=== PATIENT | female | born 1985 | race Caucasian/White ===

== ENCOUNTER 2017-11-16 20:54 | Emergency (ER) | payer SELFPAY, MEDICAID | END 2017-11-17 00:05 | disposition left against medical advice (07) | LOC: FTE 20:54 | DX: Z53.21 Procedure and treatment not carried out due to patient leaving prior to being seen by health care provider (principal) ==

== ENCOUNTER 2018-06-14 11:34 | Inpatient (IN) | payer MEDICAID ==
[2018-06-14] MEDS: LACTATED RINGER'S 1,000 ML IV ×3 (14:55→21:37)
[2018-06-14 14:58] LABS: ADD MAN DIFF? NO
[2018-06-14] MEDS ORDERED: CARBOPROST 250 MCG INJ IM (15:00)
[2018-06-14] MEDS ORDERED: OXYTOCIN 30 UNITS/LR 500 ML IV (15:00)
[2018-06-14] MEDS ORDERED: IBUPROFEN 600 MG TAB PO (15:00)
[2018-06-14] MEDS ORDERED: METHYLERGONOVINE 0.2 MG INJ IM (15:00)
[2018-06-14] MEDS ORDERED: MISOPROSTOL 200 MCG TAB PR (15:00)
[2018-06-14 15:01] LABS: BASOPHILS % 0.4 % (0.0-2.0); EOSINOPHILS # 0.1 10^3/ul (0.0-0.5); EOSINOPHILS % 0.6 % (0.0-7.0); HEMATOCRIT 35.8 % (37.0-47.0); HEMOGLOBIN 11.6 g/dl (12.0-16.0); LYMPHOCYTES # 2.3 10^3/ul (0.8-2.9); LYMPHOCYTES % 23.3 % (15.0-51.0); MEAN CORPUSCULAR HEMOGLOBIN 27.4 pg (29.0-33.0); MEAN CORPUSCULAR HGB CONC 32.4 g/dl (32.0-37.0); MEAN CORPUSCULAR VOLUME 84.4 fl (82.0-101.0); MEAN PLATELET VOLUME 12.1 fl (7.4-10.4); MONOCYTE # 0.5 10^3/ul (0.3-0.9); MONOCYTES % 4.9 % (0.0-11.0); NEUTROPHIL # 6.9 10^3/ul (1.6-7.5); PLATELET COUNT 182 10^3/UL (140-415); RED BLOOD COUNT 4.24 10^6/ul (4.20-5.40); RED CELL DISTRIBUTION WIDTH 13.6 % (11.5-14.5)
[2018-06-14 15:01] LABS: WHITE BLOOD COUNT 9.8 10^3/ul (4.8-10.8)
[2018-06-14 15:05] LABS: ADD UMIC YES; UR ASCORBIC ACID NEGATIVE (NEGATIVE); UR BACTERIA FEW /HPF (NONE SEEN); UR BILIRUBIN (Dip) NEGATIVE (NEGATIVE); UR BLOOD (Dip) 2+ mg/dL (NEGATIVE); UR CLARITY CLOUDY (CLEAR); UR COLOR YELLOW (YELLOW); UR GLUCOSE (Dip) NEGATIVE (NEGATIVE); UR KETONES (Dip) NEGATIVE (NEGATIVE); UR LEUKOCYTE ESTERASE (Dip) 3+ Leu/ul (NEGATIVE); UR NITRITE (Dip) NEGATIVE (NEGATIVE); UR RBC 1 /HPF (0-5); UR SPECIFIC GRAVITY (Dip) 1.017 (1.003-1.030); UR SQUAMOUS EPITHELIAL CELL MODERATE /HPF (FEW); UR TOTAL PROTEIN (Dip) NEGATIVE (NEGATIVE); UR UROBILINOGEN (Dip) NEGATIVE (NEGATIVE); UR WBC 4 /HPF (0-5)
[2018-06-14 15:21] LABS: INR 0.93; PARTIAL THROMBOPLASTIN TIME 24.7 Sec (23.0-35.0); PROTIME 12.6 Sec (11.9-14.9)
[2018-06-14 15:28] LABS: ALANINE AMINOTRANSFERASE 15 IU/L (13-69); ALBUMIN 3.3 g/dl (3.3-4.9); ALBUMIN/GLOBULIN RATIO 1.13; ALKALINE PHOSPHATASE 109 IU/L (42-121); ANION GAP 11 (5-13); ASPARTATE AMINO TRANSFERASE 27 IU/L (15-46); BILIRUBIN,INDIRECT 0.3 mg/dl (0-1.1); BILIRUBIN,TOTAL 0.3 mg/dl (0.2-1.3); BLOOD UREA NITROGEN 9 mg/dl (7-20); CALCIUM 9.2 mg/dl (8.4-10.2); CARBON DIOXIDE 20 mmol/L (21-31); CHLORIDE 107 mmol/L (97-110); CREATININE 0.38 mg/dl (0.44-1.00); Estimated GFR > 60 mL/min (>60); GLUCOSE 111 mg/dl (70-220); POTASSIUM 3.7 mmol/L (3.5-5.1); SODIUM 138 mmol/L (135-144); TOTAL PROTEIN 6.2 g/dl (6.1-8.1)
[2018-06-14 15:58] LABS: HEPATITIS B SURFACE ANTIGEN NEGATIVE (NEGATIVE)
[2018-06-14 20:03] LABS: RAPID PLASMA REAGIN NONREACTIVE (NR)
[2018-06-15] MEDS: BUTORPHANOL 2 MG INJ IV (00:56)
[2018-06-15] MEDS: LACTATED RINGER'S 1,000 ML IV (03:55)
[2018-06-15] MEDS ORDERED: LIDOCAINE 1% (MPF) 30 ML INJ (05:03)
[2018-06-15] MEDS ORDERED: IBUPROFEN 800 MG TAB (07:01)
[2018-06-15] MEDS: IBUPROFEN 800 MG TAB PO (07:03)
[2018-06-15] MEDS: OXYTOCIN 30 UNITS/LR 500 ML IV ×4 (07:04→11:21)
[2018-06-15] MEDS: CEFAZOLIN 2 GM/50 ML (PMX) 50 ML IVPB (07:34)
[2018-06-15] MEDS: MINERAL OIL LIGHT 10 ML VIAL TOP (07:35)
[2018-06-15] MEDS: LIDOCAINE 1% (MPF) 30 ML INJ INJ (07:35)
[2018-06-15] MEDS ORDERED: NACL 0.9% 3 ML SYG IV (09:30)
[2018-06-15] MEDS ORDERED: CARBOPROST 250 MCG INJ IM (09:30)
[2018-06-15] MEDS ORDERED: MISOPROSTOL 200 MCG TAB PR (09:30)
[2018-06-15] MEDS ORDERED: METHYLERGONOVINE 0.2 MG INJ IM (09:30)
[2018-06-15] MEDS ORDERED: OXYTOCIN 30 UNITS/LR 500 ML IV (09:30)
[2018-06-15] MEDS: HYDROCODONE/APAP (5/325) TAB PO (11:20)
[2018-06-15] MEDS ORDERED: OXYCODONE/ACETAMINOPHEN (5/325) TAB PO (11:30)
[2018-06-15] MEDS: IBUPROFEN 600 MG TAB PO ×2 (12:00→18:36)
[2018-06-15] MEDS: WITCH HAZEL/GLYCERIN PAD PR (14:58)
[2018-06-15] MEDS: LANOLIN 7 GM TUBE TOP (14:59)
[2018-06-15] MEDS: BENZOCAINE 20% 56 ML SPRAY TOP (14:59)
[2018-06-15] MEDS: SENNA/DOCUSATE NA (8.6MG/50MG) TAB PO (21:56)
[2018-06-16] MEDS: IBUPROFEN 600 MG TAB PO ×5 (05:31→23:50)
[2018-06-16] MEDS: SENNA/DOCUSATE NA (8.6MG/50MG) TAB PO ×2 (08:28→21:54)
[2018-06-16] MEDS: OXYCODONE/ACETAMINOPHEN (5/325) TAB PO (08:30)
[2018-06-16 09:29] LABS: ADD MAN DIFF? NO
[2018-06-16 09:32] LABS: BASOPHILS % 0.3 % (0.0-2.0); EOSINOPHILS # 0.1 10^3/ul (0.0-0.5); EOSINOPHILS % 0.6 % (0.0-7.0); HEMATOCRIT 30.2 % (37.0-47.0); HEMOGLOBIN 9.6 g/dl (12.0-16.0); LYMPHOCYTES # 3.5 10^3/ul (0.8-2.9); LYMPHOCYTES % 34.7 % (15.0-51.0); MEAN CORPUSCULAR HEMOGLOBIN 27.3 pg (29.0-33.0); MEAN CORPUSCULAR HGB CONC 31.8 g/dl (32.0-37.0); MEAN CORPUSCULAR VOLUME 85.8 fl (82.0-101.0); MEAN PLATELET VOLUME 12.5 fl (7.4-10.4); MONOCYTE # 0.6 10^3/ul (0.3-0.9); NEUTROPHIL # 5.8 10^3/ul (1.6-7.5); NEUTROPHILS % 57.8 % (39.0-77.0); PLATELET COUNT 168 10^3/UL (140-415); RED BLOOD COUNT 3.52 10^6/ul (4.20-5.40); RED CELL DISTRIBUTION WIDTH 14.3 % (11.5-14.5)
[2018-06-16 09:32] LABS: WHITE BLOOD COUNT 10.1 10^3/ul (4.8-10.8)
[2018-06-17] MEDS: IBUPROFEN 600 MG TAB PO (05:49)
[2018-06-17] MEDS: SENNA/DOCUSATE NA (8.6MG/50MG) TAB PO (08:36)
[2018-06-17] MEDS ORDERED: MEASLES,MUMPS,RUBELLA VACCINE INJ SC* (09:00)
[2018-06-17] MEDS: LANOLIN 7 GM TUBE TOP (11:50)
== END 2018-06-17 12:10 | disposition home or self-care (01) | DRG 807 ==
LOC: L-D 11:34 → PP1 06-15 09:11 → L-D 14:26
PROC: 10E0XZZ Delivery of Products of Conception, External Approach (ICD-10-PCS; principal; 2018-06-15)
PROC: 0HQ9XZZ Repair Perineum Skin, External Approach (ICD-10-PCS; 2018-06-15)
PROC: 3E033VJ Introduction of Other Hormone into Peripheral Vein, Percutaneous Approach (ICD-10-PCS; 2018-06-15)
DX: O24.429 Gestational diabetes mellitus in childbirth, unspecified control (principal); O36.63X0 Maternal care for excessive fetal growth, third trimester, not applicable or unspecified; O70.0 First degree perineal laceration during delivery; Z3A.39 39 weeks gestation of pregnancy; Z37.0 Single live birth
CPT/HCPCS: 76816; 80053; 80076; 81001; 82962; 85025; 85610; 85730; 86592; 86850; 86900; 86901; 87340; 99464

== ENCOUNTER 2018-07-09 14:50 | Emergency (ER) | payer MEDICAID ==
[2018-07-09] MEDS: ACETAMINOPHEN 325 MG TAB PO (15:50)
== END 2018-07-09 16:15 | disposition home or self-care (01) ==
LOC: E/R 14:50
DX: S30.0XXA Contusion of lower back and pelvis, initial encounter (principal); R40.2142 Coma scale, eyes open, spontaneous, at arrival to emergency department; R40.2362 Coma scale, best motor response, obeys commands, at arrival to emergency department; R40.2252 Coma scale, best verbal response, oriented, at arrival to emergency department; W01.0XXA Fall on same level from slipping, tripping and stumbling without subsequent striking against object, initial encounter; Y92.9 Unspecified place or not applicable
CPT/HCPCS: 99282; Z7502